=== PATIENT | male | born 1995 | race Caucasian/White ===

== ENCOUNTER 2017-02-18 22:59 | Emergency (ER) | payer BC ==
[~2017-02-18] VITALS: Ht 172.7 cm; Wt 84.0 kg
[2017-02-18 23:03] VITALS: BP 137/80; PULSE 82; RESP 14; TEMP 97.8; O2SAT 98
[2017-02-19 02:30] LABS: AUTOMATED NEUTROPHIL # 5.3 TH/MM3 (1.8-7.7); BASOPHIL % 0.4 % (0.0-2.0); EOSINOPHIL # 0.2 TH/MM3 (0-0.4); EOSINOPHIL % 1.8 % (0.0-4.0); HEMATOCRIT 43.8 % (39.0-51.0); HEMO FLAGS DIFF FINAL; LYMPH % 32.5 % (9.0-44.0); LYMPHOCYTE # 3.1 TH/MM3 (1.0-4.8); MEAN CELL VOLUME 78.6 FL (80.0-100.0); MEAN CORPUSCULAR HEMOGLOBIN 27.5 PG (27.0-34.0); MONO % 8.9 % (0.0-8.0); NEUT % 56.4 % (16.0-70.0); PLATELET COUNT 336 TH/MM3 (150-450); RED BLOOD COUNT 5.57 MIL/MM3 (4.50-5.90); RED CELL DISTRIBUTION WIDTH 13.3 % (11.6-17.2); WHITE BLOOD COUNT 9.5 TH/MM3 (4.0-11.0)
[2017-02-19 02:37] LABS: ALT (GPT) 90 U/L (12-78); ANION GAP 7 MEQ/L (5-15); AST (GOT) 62 U/L (15-37); BICARBONATE 29.7 MEQ/L (21.0-32.0); BLOOD UREA NITROGEN 12 MG/DL (7-18); CHLORIDE 104 MEQ/L (98-107); GLOMERULAR FILTRATION RATE 83 ML/MIN (>89); POTASSIUM 3.8 MEQ/L (3.5-5.1); SODIUM (NA) 141 MEQ/L (136-145)
[2017-02-19 02:39] LABS: ALKALINE PHOSPHATASE 65 U/L (45-117); TOTAL BILIRUBIN ADULT 0.7 MG/DL (0.2-1.0)
--- NOTE | 2017-02-19 03:08 | PD ---
HPI Chief Complaint: GI Complaint Time Seen by Provider: 02:31 Travel History International Travel<30 days: No Contact w/Intl Traveler<30days: No Traveled to known affect area: No History of Present Illness HPI 21-year-old male presents with bright red bleeding per rectum on one episode of diarrhea that is now resolved but he persists with nonbloody diarrhea and now left lower quadrant abdominal pain. He denies any vomiting, fever or other concurrent complaints. Quality pain is crampy. Severity is moderate. He denies specific modifying factors. Duration is couple of days. PFSH Past Medical History Medical History: Denies Significant Hx Tetanus Vaccination: < 5 Years Past Surgical History Oral Surgery: Yes (wisdom teeth ) Social History Alcohol Use: Yes Tobacco Use: No Substance Use: No Allergies-Medications (Allergen,Severity, Reaction): Coded Allergies: No Known Allergies (Unverified , 02/19/17) Reported Meds & Prescriptions Reported Meds & Active Scripts Active Ciprofloxacin (Ciprofloxacin HCl) 500 Mg Tab 500 Mg PO BID 7 Days Flagyl (Metronidazole) 500 Mg Tab 500 Mg PO BID 7 Days Review of Systems Except as stated in HPI: all other systems reviewed are Neg Physical Exam Narrative GENERAL: Well-nourished, well-developed patient. SKIN: Warm and dry. HEAD: Normocephalic and atraumatic. EYES: No injection or drainage. ENT: No nasal drainage noted. NECK: Supple, trachea midline. CARDIOVASCULAR: Regular rate and rhythm RESPIRATORY: No increased effort. No accessory muscle use. GASTROINTESTINAL: Abdomen soft, tender left lower quadrant, nondistended. NEUROLOGICAL: Awake and alert. Motor and sensory grossly within normal limits. Normal speech. Data Data Last Documented VS Vital Signs Date Time Temp Pulse Resp B/P Pulse Ox O2 Delivery O2 Flow Rate FiO2 02/19/17 04:58 74 16 128/72 100 02/18/17 23:03 97.8 Room Air Orders Complete Blood Count With Diff (02/19/17 01:57) Comprehensive Metabolic Panel (02/19/17 01:57) Lipase (02/19/17 01:57) Iv Access Insert/Monitor (02/19/17 01:57) Ct Abd/Pel W Iv Contrast(Rout) (02/19/17 ) Iohexol 350 Inj (Omnipaque 350 Inj) (02/19/17 03:55) Labs Laboratory Tests Test 02/19/17 02:05 White Blood Count 9.5 TH/MM3 Red Blood Count 5.57 MIL/MM3 Hemoglobin 15.3 GM/DL Hematocrit 43.8 % Mean Corpuscular Volume 78.6 FL Mean Corpuscular Hemoglobin 27.5 PG Mean Corpuscular Hemoglobin 35.0 % Concent Red Cell Distribution Width 13.3 % Platelet Count 336 TH/MM3 Mean Platelet Volume 7.8 FL Neutrophils (%) (Auto) 56.4 % Lymphocytes (%) (Auto) 32.5 % Monocytes (%) (Auto) 8.9 % Eosinophils (%) (Auto) 1.8 % Basophils (%) (Auto) 0.4 % Neutrophils # (Auto) 5.3 TH/MM3 Lymphocytes # (Auto) 3.1 TH/MM3 Monocytes # (Auto) 0.8 TH/MM3 Eosinophils # (Auto) 0.2 TH/MM3 Basophils # (Auto) 0.0 TH/MM3 CBC Comment DIFF FINAL Differential Comment Sodium Level 141 MEQ/L Potassium Level 3.8 MEQ/L Chloride Level 104 MEQ/L Carbon Dioxide Level 29.7 MEQ/L Anion Gap 7 MEQ/L Blood Urea Nitrogen 12 MG/DL Creatinine 1.12 MG/DL Estimat Glomerular Filtration 83 ML/MIN Rate Random Glucose 85 MG/DL Calcium Level 9.8 MG/DL Total Bilirubin 0.7 MG/DL Aspartate Amino Transf 62 U/L (AST/SGOT) Alanine Aminotransferase 90 U/L (ALT/SGPT) Alkaline Phosphatase 65 U/L Total Protein 7.5 GM/DL Albumin 4.4 GM/DL Lipase 137 U/L [facility] Medical Decision Making Medical Screen Exam Complete: Yes Emergency Medical Condition: Yes Medical Record Reviewed: Yes (past history confirmed) Interpretation(s) CBC & BMP Diagram 02/19/17 02:05 Last 24 hours Impressions Abdomen/Pelvis CT 02/19/17 0000 Signed Impressions: Service Date/Time: Sunday, February 19, 2017 03:53 - CONCLUSION: Mild, nonspecific GI tract wall thickening and very mild inflammatory changes that involve the duodenum, proximal jejunum and focally of the proximal sigmoid colon. Stevan Cherry MD Differential Diagnosis Gastroenteritis, colitis, diverticulitis, stone, diverticulosis, ulcer, hemorrhoid... Narrative Course Will check blood work, CT scan and reevaluate. Patient denies bleeding now and can have this followed up as an outpatient. ED workup with mild colon Wall thickening, will place patient on Cipro and Flagyl and have follow with GI,Patient denies any new complaints and states that they are feeling better. Patient happy with care, all questions answered. Patient knows that follow up is incumbent on them and to return to the emergency room immediately if new or worsening symptoms develop. Patient given strict return precautions, vitals reviewed and are normal, agrees to further workup as an outpatient. Diagnosis Primary Impression: Colitis Additional Impression: Diarrhea Qualified Code: R19.7 - Diarrhea, unspecified type Patient Instructions: General Instructions Additional Instructions: return as needed, follow with gi this week, tylenol as needed for pain Med/Other Pt SpecificInfo: Prescription(s) given Scripts Ciprofloxacin 500 Mg [id number] Mg PO BID 7 Days Ref 0 Prov:Yue Rubio MD 02/19/17 Metronidazole (Flagyl)500 Mg [id number] Mg PO BID 7 Days Prov:Yue Rubio MD 02/19/17 Disposition: 01 DISCHARGE HOME Condition: Stable Yue Rubio MD Feb 19, 2017 03:08
[2017-02-19] MEDS ORDERED: IOHEXOL 350 MG/ML 10 ML VIAL (for RAD DIAG) IV ONE (03:55)
--- NOTE | 2017-02-19 04:14 | RADRPT ---
EXAM DATE/TIME: 02/19/2017 03:53 [facility] COMPARISON: No previous studies available for comparison. INDICATIONS : Diarrhea and blood in stool with left lower quadrant pain X 4 days. IV CONTRAST: 96 cc Omnipaque 350 (iohexol) IV ORAL CONTRAST: No oral contrast ingested. RADIATION DOSE: 9.96 CTDIvol (mGy) MEDICAL HISTORY : None SURGICAL HISTORY : None. ENCOUNTER: Initial ACUITY: 4 - 6 days PAIN SCALE: 7/10 LOCATION: Left lower quadrant TECHNIQUE: Volumetric scanning of the abdomen and pelvis was performed. Using automated exposure control and ad justment of the mA and/or kV according to patient size, radiation dose was kept as low as reasonably achievable to obtain optimal diagnostic quality images. FINDINGS: LOWER LUNGS: The visualized lower lungs are clear. LIVER: Homogeneous density without lesion. There is no dilation of the biliary tree. No calcified gallston es. SPLEEN: Normal size without lesion. PANCREAS: Within normal limits. KIDNEYS: Normal in size and shape. There is no mass, stone or hydronephrosis. ADRENAL GLANDS: Within normal limits. VASCULAR: There is no aortic aneurysm. BOWEL/MESENTERY: Mild, fairly long segment wall thickening seen of the duodenum and proximal jejunum. The ileum appear s normal. Proximal sigmoid colon has minimal wall thickening and mild adjacent fat stranding, for exa mple series 2 image 78 and series 601 image 28. I don't see any diverticula. Stomach appears normal. No gastric distention. The appendix is well-visualized, normal. ABDOMINAL WALL: Within normal limits. RETROPERITONEUM: There is no lymphadenopathy. BLADDER: No wall thickening or mass. REPRODUCTIVE: Within normal limits. INGUINAL: There is no lymphadenopathy or hernia. MUSCULOSKELETAL: Sacral perineural cysts are incidentally noted. No acute bony abnormality demonstrated. CONCLUSION: Mild, nonspecific GI tract wall thickening and very mild inflammatory changes that involve the duoden um, proximal jejunum and focally of the proximal sigmoid colon. Stevan Cherry MD on February 19, 2017 at 4:03 Board Certified Radiologist. This report was verified electronically.
[2017-02-19] MEDS ORDERED: METR-1 PO (04:24)
[2017-02-19] MEDS ORDERED: CIPR500T2 PO (04:24)
[2017-02-19 04:58] VITALS: BP 128/72
== END 2017-02-19 04:59 | disposition home or self-care (01) ==
LOC: NEPE 22:59
DX: K52.9 Noninfective gastroenteritis and colitis, unspecified (principal)
CPT/HCPCS: 74177; 80053; 83690; 85025; 99284; Q9967

== ENCOUNTER 2017-02-27 00:45 | Emergency (ER) | payer BC ==
[~2017-02-27] VITALS: Ht 175.3 cm; Wt 86.0 kg
[~2017-02-27 00:45] MED LIST: CIPR500T2 PO; METR-1 PO
[2017-02-27 00:47] VITALS: BP 139/80; PULSE 92; RESP 18; TEMP 99.4; O2SAT 100
[2017-02-27] MEDS ORDERED: SODIUM CHLOR 0.9% 1000 ML INJ 1,000 ML IV ONE (01:56)
[2017-02-27] MEDS ORDERED: ONDANSETRON HCL 4 MG/2 ML VIAL IV PUSH ONE (01:56)
[2017-02-27] MEDS ORDERED: KETOROLAC TROMETHAMINE 30 MG/ML (IVP) VIAL IV PUSH ONE (01:56)
[2017-02-27 02:49] LABS: ALT (GPT) 54 U/L (12-78); ANION GAP 8 MEQ/L (5-15); AST (GOT) 27 U/L (15-37); BICARBONATE 24.6 MEQ/L (21.0-32.0); BLOOD UREA NITROGEN 18 MG/DL (7-18); CHLORIDE 107 MEQ/L (98-107); GLOMERULAR FILTRATION RATE 70 ML/MIN (>89); POTASSIUM 3.9 MEQ/L (3.5-5.1); SODIUM (NA) 140 MEQ/L (136-145)
[2017-02-27 02:51] LABS: ALKALINE PHOSPHATASE 60 U/L (45-117); TOTAL BILIRUBIN ADULT 0.7 MG/DL (0.2-1.0)
[2017-02-27 03:00] LABS: AUTOMATED NEUTROPHIL # 5.4 TH/MM3 (1.8-7.7); BASOPHIL # 0.1 TH/MM3 (0-0.2); BASOPHIL % 0.7 % (0.0-2.0); EOSINOPHIL # 0.2 TH/MM3 (0-0.4); EOSINOPHIL % 1.9 % (0.0-4.0); HEMO FLAGS DIFF FINAL; LYMPH % 27.9 % (9.0-44.0); LYMPHOCYTE # 2.6 TH/MM3 (1.0-4.8); MEAN CELL VOLUME 78.3 FL (80.0-100.0); MEAN CORPUSCULAR HEMOGLOBIN 27.3 PG (27.0-34.0); MEAN CORPUSCULAR HGB CONC 34.9 % (32.0-36.0); MONO % 10.3 % (0.0-8.0); NEUT % 59.2 % (16.0-70.0); PLATELET COUNT 354 TH/MM3 (150-450); RED BLOOD COUNT 5.87 MIL/MM3 (4.50-5.90); RED CELL DISTRIBUTION WIDTH 13.2 % (11.6-17.2); WHITE BLOOD COUNT 9.2 TH/MM3 (4.0-11.0)
[2017-02-27] MEDS ORDERED: IOHEXOL 350 MG/ML 10 ML VIAL (for RAD DIAG) IV ONE (03:00)
--- NOTE | 2017-02-27 03:38 | PD ---
HPI Chief Complaint: Abdominal Pain Time Seen by Provider: 02:37 Travel History International Travel<30 days: Yes Contact w/Intl Traveler<30days: Yes Name of Country Traveled to: [place] Traveled to known affect area: No History of Present Illness HPI Said 21-year-old man who presents to the emergency department complaining of abdominal pain. He was seen on February 18 with low four-quadrant abdominal pain and some bright red blood per rectum and some diarrhea. He had some vomiting initially as well. He had a CT scan that showed mild nonspecific GI track wall thickening and very mild inflammatory changes involving the duodenum, proximal jejunum, and focally in the proximal sigmoid colon. He was treated for colitis Cipro and Flagyl. He never really had any improvement in his symptoms. He didn 't have any more bright red blood per rectum but still had loose stools and diarrhea. He finished the Cipro and the Flagyl. Pain gradually continued to worsen and then migrated to the right lower quadrant. Came back in today worsening bilateral lower abdominal pain. He has no history of previous similar episodes of pain. There is no family history of inflammatory bowel disease or stomach problems. He has no history of abdominal surgeries. He traveled to the [place] in September, but no other recent travel. No recent antibiotics. History Past Medical History Medical History: Denies Significant Hx Social History Alcohol Use: Yes Tobacco Use: No Allergies-Medications (Allergen,Severity, Reaction): Coded Allergies: No Known Allergies (Unverified , 02/27/17) Reported Meds & Prescriptions Reported Meds & Active Scripts Active Ciprofloxacin (Ciprofloxacin HCl) 500 Mg Tab 500 Mg PO BID 7 Days Flagyl (Metronidazole) 500 Mg Tab 500 Mg PO BID 7 Days Review of Systems Except as stated in HPI: all other systems reviewed are Neg Physical Exam Narrative GENERAL: Well-appearing 21-year-old man, appears uncomfortable. Nontoxic. SKIN: Focused skin assessment warm/dry. NECK: Trachea midline. No JVD. CARDIOVASCULAR: Regular rate and rhythm. No murmur appreciated. RESPIRATORY: No accessory muscle use. Clear to auscultation. Breath sounds equal bilaterally. GASTROINTESTINAL: Moderate diffuse lower abdominal tenderness. MUSCULOSKELETAL: No obvious deformities. No edema. NEUROLOGICAL: Awake and alert. No obvious cranial nerve deficits. Motor grossly within normal limits. Normal speech. PSYCHIATRIC: Appropriate mood and affect; insight and judgment normal. Data Data Last Documented VS Vital Signs Date Time Temp Pulse Resp B/P Pulse Ox O2 Delivery O2 Flow Rate FiO2 02/27/17 00:47 99.4 92 18 139/80 100 Room Air Orders Complete Blood Count With Diff (02/27/17 01:56) Comprehensive Metabolic Panel (02/27/17 01:56) Ct Abd/Pel W Iv Contrast(Rout) (02/27/17 03:06) Sodium Chlor 0.9% 1000 Ml Inj (Ns 1000 M (02/27/17 01:56) Ondansetron Inj (Zofran Inj) (02/27/17 01:56) Ketorolac Inj (Toradol Inj) (02/27/17 01:56) Iohexol 350 Inj (Omnipaque 350 Inj) (02/27/17 03:00) Enteric Path (Stool) (02/27/17 03:31) C Diff Toxin Pcr (02/27/17 03:31) Urinalysis - C+S If Indicated (02/27/17 03:35) Labs Laboratory Tests Test 02/27/17 02/27/17 01:56 03:55 White Blood Count 9.2 TH/MM3 Red Blood Count 5.87 MIL/MM3 Hemoglobin 16.1 GM/DL Hematocrit 46.0 % Mean Corpuscular Volume 78.3 FL Mean Corpuscular Hemoglobin 27.3 PG Mean Corpuscular Hemoglobin 34.9 % Concent Red Cell Distribution Width 13.2 % Platelet Count 354 TH/MM3 Mean Platelet Volume 7.9 FL Neutrophils (%) (Auto) 59.2 % Lymphocytes (%) (Auto) 27.9 % Monocytes (%) (Auto) 10.3 % Eosinophils (%) (Auto) 1.9 % Basophils (%) (Auto) 0.7 % Neutrophils # (Auto) 5.4 TH/MM3 Lymphocytes # (Auto) 2.6 TH/MM3 Monocytes # (Auto) 0.9 TH/MM3 Eosinophils # (Auto) 0.2 TH/MM3 Basophils # (Auto) 0.1 TH/MM3 CBC Comment DIFF FINAL Differential Comment Sodium Level 140 MEQ/L Potassium Level 3.9 MEQ/L Chloride Level 107 MEQ/L Carbon Dioxide Level 24.6 MEQ/L Anion Gap 8 MEQ/L Blood Urea Nitrogen 18 MG/DL Creatinine 1.30 MG/DL Estimat Glomerular Filtration 70 ML/MIN Rate Random Glucose 88 MG/DL Calcium Level 9.5 MG/DL Total Bilirubin 0.7 MG/DL Aspartate Amino Transf 27 U/L (AST/SGOT) Alanine Aminotransferase 54 U/L (ALT/SGPT) Alkaline Phosphatase 60 U/L Total Protein 7.7 GM/DL Albumin 4.4 GM/DL Urine Color YELLOW Urine Turbidity CLEAR Urine pH 6.0 Urine Specific Scenic GREATER THAN 1.050 Urine Protein NEG mg/dL Urine Glucose (UA) NEG mg/dL Urine Ketones 10 mg/dL Urine Occult Blood NEG Urine Nitrite NEG Urine Bilirubin NEG Urine Urobilinogen LESS THAN 2.0 MG/DL Urine Leukocyte Esterase NEG Urine RBC 1 /hpf Urine WBC LESS THAN 1 /hpf Urine Squamous Epithelial <1 /hpf Cells Urine Mucus FEW /lpf Microscopic Urinalysis Comment CULT NOT INDICATED MDM Medical Decision Making Medical Screen Exam Complete: Yes Emergency Medical Condition: Yes Interpretation(s) LABS: CBC unremarkable. CMP unremarkable. UA: Elevated specific gravity, otherwise unremarkable. CT abdomen and pelvis: Questionable wall thickening involving the rectosigmoid colon. No inflammatory changes. Remainder the abdomen and pelvis otherwise unremarkable. Differential Diagnosis Colitis, inflammatory bowel disease, enteritis, appendicitis, other Narrative Course Medical decision making INITIAL: This a 21 year-old woman who presents with worsening lower abdominal pain ongoing for the past 2 weeks or so, with previous EKG that showed nonspecific diffuse inflammatory changes in the bowels. Still having diarrhea. Suspicious for inflammatory bowel disease. We'll check labs, we will repeat CT, when the GI follow-up. Reassess. Diagnosis Primary Impression: Colitis Additional Instructions: Take Bentyl and Naprosyn as needed for abdominal pain. Follow-up with your primary doctor on Tuesday. Return to the emergency department for any new or worsening symptoms. Med/Other Pt SpecificInfo: Prescription(s) given Scripts Naproxen (Naprosyn)500 Mg Bie360 Mg PO BID PRN (PAIN SCALE 1 TO 10) #20 TAB Prov:Leobardo Pizano MD 02/27/17 Dicyclomine (Bentyl)20 Mg Tab20 Mg PO QID PRN (ABDOMINAL CRAMPING) #20 TAB Prov:Leobardo Pizano MD 02/27/17 Disposition: 01 DISCHARGE HOME Condition: Stable Leobardo Pizano MD February 27, 2017 03:38
--- NOTE | 2017-02-27 03:44 | RADRPT ---
EXAM DATE/TIME: 02/27/2017 03:06 [facility] COMPARISON: No previous studies available for comparison. INDICATIONS : Abdominal pain and nausea X 2 weeks. IV CONTRAST: 96 cc Omnipaque 350 (iohexol) IV ORAL CONTRAST: No oral contrast ingested. RADIATION DOSE: 7.36 CTDIvol (mGy) MEDICAL HISTORY : None SURGICAL HISTORY : None. ENCOUNTER: Subsequent ACUITY: 2 weeks PAIN SCALE: 8/10 LOCATION: Abdomen TECHNIQUE: Volumetric scanning of the abdomen and pelvis was performed. Using automated exposure control and ad justment of the mA and/or kV according to patient size, radiation dose was kept as low as reasonably achievable to obtain optimal diagnostic quality images. FINDINGS: LOWER LUNGS: The visualized lower lungs are clear. LIVER: Homogeneous density without lesion. There is no dilation of the biliary tree. No calcified gallston es. SPLEEN: Normal size without lesion. PANCREAS: Within normal limits. KIDNEYS: Normal in size and shape. There is no mass, stone or hydronephrosis. ADRENAL GLANDS: Within normal limits. VASCULAR: There is no aortic aneurysm. BOWEL/MESENTERY: Questionable wall thickening involving the rectosigmoid colon. No inflammatory changes. There is no f ree intraperitoneal air or fluid. Appendix is normal. ABDOMINAL WALL: Within normal limits. RETROPERITONEUM: There is no lymphadenopathy. BLADDER: No wall thickening or mass. REPRODUCTIVE: Within normal limits. INGUINAL: There is no lymphadenopathy or hernia. MUSCULOSKELETAL: Within normal limits for patient age. CONCLUSION: 1. Questionable wall thickening involving the rectosigmoid colon. No inflammatory changes. 2. The remainder the abdomen/pelvis is otherwise unremarkable. Brennan Lomeli MD on February 27, 2017 at 3:39 Board Certified Radiologist. This report was verified electronically.
[2017-02-27 04:26] LABS: BLOOD, URINE NEG (NEG); COMMENT (UR) CULT NOT INDICATED; CULTURE IF INDICATED CULT NOT INDICATED; GLUCOSE,URINE NEG (NEG); KETONE, URINE 10 mg/dL (NEG); MUCUS URINE FEW /lpf (OCC); NITRITE,URINE NEG (NEG); SQUAMOUS EPITHELIAL CELL URINE <1 /hpf (0-5); URINE COLOR YELLOW (YELLW/STRAW)
[2017-02-27] MEDS ORDERED: NAPR500 PO (04:30)
[2017-02-27] MEDS ORDERED: BENT20TA PO (04:30)
== END 2017-02-27 05:10 | disposition home or self-care (01) ==
LOC: NED 00:45 → NEPC 05:10
DX: K52.9 Noninfective gastroenteritis and colitis, unspecified (principal); R19.7 Diarrhea, unspecified
CPT/HCPCS: 74177; 80053; 81001; 85025; 96361; 96374; 96375; 99284; J1885; J2405; J7030; Q9967